=== PATIENT | male | born 1960 | race Caucasian/White ===

== ENCOUNTER 2024-01-20 06:53 | Day surgery (SDC) | payer OTHER, SELFPAY ==
[2024-01-16 13:27] VITALS: BMI 28.4
[2024-01-16 13:38] LABS: Hematocrit 42.3 % (39.0-52.0); Hemoglobin 14.9 g/dL (13.0-18.0); Mean Corp Hgb Conc. 35.2 g/dL (33.0-37.0); Mean Corpuscular Hgb 30.2 pg (27.0-31.0); Mean Corpuscular Volume 85.6 fL (80.0-94.0); Platelet Count 260 10^3/uL (130-400); Red Blood Cell Count 4.94 10^6/uL (4.70-6.10); Red Cell Dist. Width 13.1 % (11.5-14.5); White Blood Cell Count 6.8 10^3/uL (4.8-10.8)
[2024-01-16 14:24] LABS: Blood Urea Nitrogen 17 mg/dl (9-20); Calcium 10.1 mg/dl (8.4-10.2); Carbon Dioxide 25 mmol/L (22-30); Chloride 104 mmol/L (98-107); Estimated Creatinine Clearance 76 ml/min; Glucose 79 mg/dl (70-99); Potassium 4.1 mmol/L (3.5-5.1); Sodium 138 mmol/L (135-145); eGFR > 60.00
[2024-01-20] VITALS (8 sets, daily range): BP systolic 130–142; BP diastolic 67–97; BMI 28.4
--- NOTE | 2024-01-20 07:22 | HP.FOC2 ---
Focused History & Physical
Chief Complaint
HPI:
Chief Complaint: Right inguinal swelling
HPI / Indication for Planned Procedure: Patient is a 63-year-old male recently seen in outpatient surgical evaluation secondary to a few month history of intermittent swelling in the right inguinal region. Symptoms are particular exacerbated by
strenuous activity and prolonged standing. The hernia reduces when lying down. Past abdominal surgical history only notable for open left inguinal herniorrhaphy at the age of 18.
Relevant Past Medical History: Negative (Patient denies any active or significant past medical history)
Relevant Social History: Negative
Relevant Family History: Negative
Relevant Past Surgical History: Positive for (Open left herniorrhaphy)
Review of Systems
Review of Pertinent Systems: All Systems Negative
Medication
See Medication form for detailed medications: Yes
Medication List (including Herbals & OTC):
cholecalciferol (vitamin D3) 25 mcg (1,000 unit) tablet (Vitamin D3) 25 mcg PO DAILY 01/17/24
Medications Reviewed: Yes
Allergies and Reactions
Patient has Allergies: Yes
Noted Allergies and Reactions:
Allergy/AdvReac Type Severity Reaction Status Date / Time
pollen extracts Allergy SEASONAL Verified 01/17/24 11:57
Pertinent Physical Exam
All Other Systems: Negative
Head/Neck: Normal
Lungs: Normal
Heart: Normal
Abdomen: Other (Reducible right inguinal hernia) and Other (Left inguinal scar)
Extremities: Normal
Neurological: Normal
Diagnosis / Assessment
63-year-old male presents for scheduled operative correction of symptomatic right inguinal hernia
Plan / Procedure
Robotic assisted laparoscopic repair of right inguinal hernia with mesh
Anesthesia/Sedation to be done by Anesthesia Provider: Yes
[2024-01-20] MEDS: TYLENOL 1000 MG PO (10:56)
[2024-01-20] MEDS: NORMOSOL-R 1000 IV (11:04)
--- NOTE | 2024-01-20 11:24 | W.SUR.PREOP ---
Pre-Operative Surgical Note
-
I have examined this patient prior to the performance of the scheduled procedure.
The patient's condition is unchanged from the time of the current History and
Physical and the patient is able to undergo the scheduled procedure.
--- NOTE | 2024-01-20 13:17 | W.IMMPOSTOP ---
Addendum entered and electronically signed by Eligio Keating MD 01/22/24 10:07:
#[id number]
Original Note:
Surgical Immed Post Op Note
-
Primary Surgeon: Rishabh
Assisting Surgeon: Samanta Hsu PA-c
Pre-op Diagnosis: RIH
Post-op Diagnosis: RIH - indirect
Procedure Performed: RAL LEE RIH repair with mesh; 3d max ex large, mid.
Anesthesia Type: GETA + 0.25% Marcaine
Specimen / Cultures: none
Estimated Blood Loss: 8mL
Complications: none immediate
Operative Findings: large right indirect inguinal hernia, no lipoma of cord structures. 3d max ex large, mid weight mesh repair.
The assistance of Samanta Hsu PA-C was required due to the complexity of the procedure. During the procedure Samanta Hsu PA-C assisted with port placement, robotic instrumentation and suture material exchanges, and closure of the surgical incision
sites. I was present for the entirety of the operative procedure.
updated via phone call; friend updated via phone call
--- NOTE | 2024-01-20 13:51 | PTCARENOTE ---
Dr Garcia reviewed 2nd CXR. said it looked better then the first but wants another CXR at 230
== END 2024-01-20 15:04 | disposition home or self-care (01) ==
LOC: SDS 06:53
PROVIDERS: ATTENDING PHYSICIAN Surgery; FAMILY PHYSICIAN Nurse Practitioner Adult Health
DX: K40.90 Unilateral inguinal hernia, without obstruction or gangrene, not specified as recurrent (principal)
CPT/HCPCS: 49505; 36415; 80048; 85027; 93005; C1781